=== PATIENT | female | born 1960 | race Caucasian/White ===

== ENCOUNTER 2017-02-14 12:23 | Emergency (ER) | payer BC, OTHER ==
[~2017-02-14] VITALS: Ht 165.1 cm; Wt 66.5 kg
[2017-02-14] MEDS ORDERED: SODIUM CHLORIDE 0.9% 1,000 ML IV ONE (13:19)
[2017-02-14] MEDS ORDERED: THIAMINE 100 MG in SODIUM CHLORIDE 0.9% 50 ML IVPB ONE (13:30)
[2017-02-14] MEDS ORDERED: SODIUM CHLORIDE 0.9% 1,000ML IVBOLUS ONE (13:30)
[2017-02-14] MEDS ORDERED: ONDANSETRON 2MG/ML, 2ML IVPush ONE (13:30)
[2017-02-14] MEDS ORDERED: LORazepam 2 MG/ML, 1ML IVPush PRN (13:30)
[2017-02-14] MEDS ORDERED: SODIUM CHLORIDE FLUSH 10ML SYR IVF ONE (13:30)
[2017-02-14 13:49] LABS: ASPARTATE AMINO TRANSFERASE 63 U/L (15-37); BLOOD UREA NITROGEN 9 mg/dL (7-18)
[2017-02-14 14:19] LABS: DAU SCREEN DISCLAIMER
[2017-02-14] MEDS ORDERED: LORazepam 2 MG/ML, 1ML ONE (14:20)
[2017-02-14] MEDS ORDERED: ONDANSETRON 2MG/ML, 2ML ONE (14:20)
[2017-02-14 14:40] LABS: HEMOGLOBIN 15.2 g/dL (11.7-16.4)
[2017-02-14 15:14] VITALS: BP 106/71
== END 2017-02-14 17:07 ==
LOC: ED 14:46
DX: S92.514A Nondisplaced fracture of proximal phalanx of right lesser toe(s), initial encounter for closed fracture (principal); F10.221 Alcohol dependence with intoxication delirium; I10 Essential (primary) hypertension; Z90.710 Acquired absence of both cervix and uterus; X58.XXXA Exposure to other specified factors, initial encounter; Y93.89 Activity, other specified; Y92.89 Other specified places as the place of occurrence of the external cause; Y99.9 Unspecified external cause status
CPT/HCPCS: 36415; 71010; 73630; 80053; 80307; 81003; 82140; 83605; 83690; 83880; 85025; 93005; 96365; 96375; 99285; J2060; J2405; J3411; J7030

== ENCOUNTER 2018-03-06 12:10 | Emergency (ER) | payer BC ==
[~2018-03-06] VITALS: Ht 165.1 cm; Wt 73.0 kg
[2018-03-06] MEDS ORDERED: GABA-827 PO (12:21)
[2018-03-06 12:46] LABS: BASOPHILS # (AUTO) 0.15 x10^3/uL (0-0.1); BASOPHILS % (AUTO) 2 % (0-1); EOSINOPHILS % (AUTO) 1 % (1-7); LYMPHOCYTES # (AUTO) 3.13 x10^3/uL (1-3.4); LYMPHOCYTES % (AUTO) 34 % (22-44); MD NO; MEAN CORPUSCULAR HEMOGLOBIN 33.5 pg (27.0-34.8); MEAN CORPUSCULAR VOLUME 98.6 fL (80-100); MEAN PLATELET VOLUME 7.1 fL (7.4-10.4); MONOCYTES # (AUTO) 0.54 x10^3/uL (0.2-0.8); MONOCYTES % (AUTO) 6 % (2-9); NEUTROPHILS # (AUTO) 5.18 x10^3/uL (1.8-6.8); NEUTROPHILS % (AUTO) 57 % (42-75); PLATELET COUNT 494 x10^3/uL (130-400); RED BLOOD COUNT 4.66 x10^6/uL (3.82-5.3)
[2018-03-06 12:56] LABS: ALBUMIN 3.6 g/dL (3.4-5.0); ANION GAP 10 mmol/L (5-15); CALCIUM 8.8 mg/dL (8.5-10.1); CHLORIDE 111 mmol/L (98-107)
[2018-03-06 13:00] LABS: ALANINE AMINOTRANSFERASE 47 U/L (12-78); ALKALINE PHOSPHATASE 91 U/L (45-117); BILIRUBIN,TOTAL 0.4 mg/dL (0.2-1.0); CREATININE 0.57 mg/dL (0.55-1.02); TOTAL PROTEIN 6.9 g/dL (6.4-8.2)
[2018-03-06 17:34] VITALS: BP 110/75
== END 2018-03-06 17:36 | disposition home or self-care (01) ==
LOC: ED 15:45
DX: F10.229 Alcohol dependence with intoxication, unspecified (principal); I10 Essential (primary) hypertension
CPT/HCPCS: 36415; 80053; 83690; 85025; 99284

== ENCOUNTER 2018-09-04 16:55 | Emergency (ER) | payer BC ==
[~2018-09-04] VITALS: Ht 165.1 cm; Wt 65.4 kg
[~2018-09-04 16:55] MED LIST: GABA-827 PO
[2018-09-04 17:50] LABS: BASOPHILS % (AUTO) 4 % (0-1); EOSINOPHILS # (AUTO) 0.05 x10^3/uL (0-0.4); EOSINOPHILS % (AUTO) 1 % (1-7); LYMPHOCYTES % (AUTO) 26 % (22-44); MD NO; MEAN CORPUSCULAR HEMOGLOBIN 34.4 pg (27.0-34.8); MEAN CORPUSCULAR HGB CONC 34.4 g/dL (32.4-35.8); MEAN CORPUSCULAR VOLUME 99.9 fL (80-100); MEAN PLATELET VOLUME 7.1 fL (7.4-10.4); MONOCYTES # (AUTO) 0.58 x10^3/uL (0.2-0.8); MONOCYTES % (AUTO) 5 % (2-9); NEUTROPHILS # (AUTO) 7.69 x10^3/uL (1.8-6.8); NEUTROPHILS % (AUTO) 66 % (42-75); PLATELET COUNT 534 x10^3/uL (130-400); RED BLOOD COUNT 4.88 x10^6/uL (3.82-5.3)
[2018-09-04 17:58] LABS: ANION GAP 16 mmol/L (5-15); CALCIUM 8.8 mg/dL (8.5-10.1); CHLORIDE 101 mmol/L (98-107)
[2018-09-04 18:01] LABS: ALANINE AMINOTRANSFERASE 86 U/L (12-78); ALKALINE PHOSPHATASE 112 U/L (45-117); BILIRUBIN,TOTAL 0.4 mg/dL (0.2-1.0); CREATININE 0.59 mg/dL (0.55-1.02); TOTAL PROTEIN 8.1 g/dL (6.4-8.2)
[2018-09-04 18:05] LABS: MICROSCOPIC NOT IND
[2018-09-04 18:08] LABS: CULTURE INDICATED? NO
[2018-09-04] MEDS ORDERED: MAALOX/HYOSCYAMINE/LIDOCAINE 45 ML BTL PO ONE (18:30)
[2018-09-04] MEDS ORDERED: FAMOTIDINE 20 MG TABLET PO ONE (18:30)
[2018-09-04] MEDS ORDERED: ONDANSETRON ODT 4 MG PO ONE (18:30)
[2018-09-04] MEDS ORDERED: FAMOTIDINE 20 MG TABLET ONE (18:50)
[2018-09-04] MEDS ORDERED: MAALOX/HYOSCYAMINE/LIDOCAINE 45 ML BTL ONE (18:51)
[2018-09-04] MEDS ORDERED: ONDANSETRON ODT 4 MG ONE (18:51)
[2018-09-04 19:42] VITALS: BP 120/84
== END 2018-09-04 19:45 | disposition home or self-care (01) ==
LOC: ED 19:15
DX: K29.20 Alcoholic gastritis without bleeding (principal); I10 Essential (primary) hypertension; Z90.710 Acquired absence of both cervix and uterus
CPT/HCPCS: 36415; 80053; 80307; 81003; 83690; 85025; 86677; 99284; Q0162